=== PATIENT | male | born 1980 | race Caucasian/White ===

== ENCOUNTER 2021-02-19 22:38 | Emergency (ER) | payer OTHER ==
[2021-02-19] MEDS ORDERED: CHERRY SYRUP 10 ML UDC PO ONE (23:23)
[2021-02-19] MEDS ORDERED: ACETAMINOPHEN 325 MG TABLET PO STA (23:23)
[2021-02-19] MEDS ORDERED: DEXAMETHASONE 10 MG/ML VIAL PO STA (23:23)
--- NOTE | 2021-02-19 23:40 | ED Physician Documentation ---
History of Present Illness - Stated complaint Stated Complaint: C+ - Chief complaint Chief Complaint: Resp - History obtained from History obtained from: Patient - Additonal information Additional information: 40yM, unvaccinated against covid 19, p/w soa progressively worsening over the past week. patient had positive home covid test about 8 days ago and has had fevers, nonproductive cough, body aches and shortness of breath since then. Review of Systems Ten Systems: 10 systems reviewed and negative Constitutional: reports: Fever, Chills, Myalgias, Fatigue Respiratory: reports: Dyspnea Musculoskeletal: reports: Back pain Neurologic: reports: Generalized weakness PD PAST MEDICAL HISTORY - Present Medications Home Medications: Ambulatory Orders Medication Instructions Recorded Confirmed No Known Home Medications 02/19/21 02/19/21 - Allergies Allergies/Adverse Reactions: Allergies Allergy/AdvReac Type Severity Reaction Status Date / Time No Known Drug Allergies Allergy Verified 02/19/21 22:59 PD ED PE NORMAL - Vitals Vital signs reviewed: Yes - General General: Alert and oriented X 3, No acute distress, Well developed/nourished, Other (uncomfortable appearing) - HEENT HEENT: Atraumatic, PERRL, EOMI - Neck Neck: Supple, no meningeal sign - Cardiac Cardiac: RRR, No murmur, Other (borderline tachycardic rate, regular rhythm) - Respiratory Respiratory: Other (BL coarse breath sounds. no wheezing or focal consolidation) - Abdomen Abdomen: Non tender, Non distended - Derm Derm: Normal color, Warm and dry - Extremities Extremities: No deformity, No edema - Neuro Neuro: Alert and oriented X 3 - Psych Psych: Normal mood, Normal affect Results - Vitals Vitals: Vital Signs - 24 hr 02/19/21 02/19/21 22:55 23:58 Temperature 38.6 C H Heart Rate 107 H 95 Respiratory 33 H 22 Rate Blood Pressure 135/90 H 130/93 H O2 Saturation 97 97 Oxygen O2 Source Room air PD MEDICAL DECISION MAKING - ED course ED course: 40yM presents with covid-19 symptoms of shortness of breath. no increased wob. pulse oximetry normal. exam c/w covid-19 viral syndrome. symptom management discussed. return precautions given. plan to f/u with pmd via telehealth. Departure - Departure Disposition: 01 Home, Self Care Clinical Impression: COVID-19 Condition: Stable Instructions: COVID-19 [facility], COVID-19 [facility] Department Statement Discharge Date/Time: 02/20/21 00:01
[2021-02-20 00:01] VITALS: BP 130/93
== END 2021-02-20 00:01 | disposition home or self-care (01) ==
LOC: ED 22:38
DX: U07.1 COVID-19 (principal)
CPT/HCPCS: 99282; A9270